=== PATIENT | male | born 1955 | race Two or more races ===

== ENCOUNTER 2017-02-07 10:10 | Emergency (ER) | payer OTHER ==
--- NOTE | 2017-02-07 10:18 | EDPHY ---
H & P Time Seen by Provider: 02/07/17 10:18 HPI/ROS: CHIEF COMPLAINT: Tachycardia HISTORY OF PRESENT ILLNESS: The patient presents to the ED after he was noted on a routine physical examination to have tachycardia. The patient has no complaints of chest pain. He does have occasional dyspnea on exertion. The patient denies any fever, cough or congestion. He denies asymmetric calf pain or swelling. REVIEW OF SYSTEMS: A comprehensive 10 point review of systems is otherwise negative aside from elements mentioned in the history of present illness. Source: Patient Exam Limitations: No limitations - Family History Significant Family History: No pertinent family hx - Physical Exam Exam: General Appearance: Alert, no distress Eyes: Pupils equal and round no pallor or injection ENT, Mouth: Mucous membranes moist Respiratory: There are no retractions, lungs are clear to auscultation Cardiovascular: Irregular tachycardia consistent with atrial fibrillation Gastrointestinal: Abdomen is soft and nontender, no masses, bowel sounds normal Neurological: A&O, normal motor function, normal sensory exam, normal cranial nerves Skin: Warm and dry, no rashes Musculoskeletal: Neck is supple nontender Extremities: symmetrical, full range of motion Constitutional: Initial Vital Signs Temperature (C) 36.7 C 02/07/17 10:17 Heart Rate 157 H 02/07/17 10:17 Respiratory Rate 16 02/07/17 10:17 Blood Pressure 144/110 H 02/07/17 10:17 O2 Sat (%) 95 02/07/17 10:17 O2 Delivery Mode Room Air Allergies/Adverse Reactions: No Known Allergies Allergy (Unverified 02/07/17 10:17) Home Medications: Medication Instructions Recorded Multivitamin 02/07/17 Medical Decision Making - Diagnostics EKG Interpretation: EKG: Complete interpretation has been separately recorded in the [email or web address] archive. Summary impression: Atrial fibrillation ventricular rate 153 Imaging Results: Imaging Impressions Chest X-Ray 02/07/17 10:33 Impression: Normal chest x-ray. ED Course/Re-evaluation: The patient presents to the ED with newly diagnosed atrial fibrillation. The patient has no complaints of chest pain or shortness of breath. He has no clinical or radiographic evidence of heart failure. The patient is noted to have a normal troponin and TSH. He has no evidence of anemia or metabolic abnormality. The patient did have a single recorded episode of hypertension at triage. He was normotensive at the time of this dictation. The patient's CHADs VASC score is 1 secondary to his hypertension. I did zulmabsanitha Carpio from Cardiology. The patient will be started on an 81 mg aspirin and diltiazem 120 mg XR. The patient will contact Dr. Carpio for a follow-up visit. Patient understands to return to the ED for any chest pain, shortness of breath or syncope. Differential Diagnosis: Differential diagnosis considered includes atrial fibrillation, SVT, pulmonary embolism, hyperthyroidism, anemia, congestive heart failure - Data Points Laboratory Results: Laboratory Results 02/07/17 10:20 02/07/17 10:20 02/07/17 02/07/17 02/07/17 10:20 10:20 10:20 WBC 7.97 10^3/uL 10^3/uL (3.80-9.50) RBC 4.84 10^6/uL 10^6/uL (4.40-6.38) Hgb 14.5 g/dL g/dL (13.7-17.5) Hct 43.6 % % (40.0-51.0) MCV 90.1 fL fL (81.5-99.8) MCH 30.0 pg pg (27.9-34.1) MCHC 33.3 g/dL g/dL (32.4-36.7) RDW 13.3 % % (11.5-15.2) Plt Count 231 10^3/uL 10^3/uL (150-400) MPV 8.8 fL fL (8.7-11.7) Neut % (Auto) 77.4 % H % (39.3-74.2) Lymph % (Auto) 13.2 % L % (15.0-45.0) Gem % (Auto) 7.5 % % (4.5-13.0) Eos % (Auto) 1.0 % % (0.6-7.6) Baso % (Auto) 0.6 % % (0.3-1.7) Nucleat RBC Rel Count 0.0 % % (0.0-0.2) Absolute Neuts (auto) 6.17 10^3/uL 10^3/uL (1.70-6.50) Absolute Lymphs (auto) 1.05 10^3/uL 10^3/uL (1.00-3.00) Absolute Monos (auto) 0.60 10^3/uL 10^3/uL (0.30-0.80) Absolute Eos (auto) 0.08 10^3/uL 10^3/uL (0.03-0.40) Absolute Basos (auto) 0.05 10^3/uL 10^3/uL (0.02-0.10) Absolute Nucleated RBC 0.00 10^3/uL 10^3/uL (0-0.01) Immature Gran % 0.3 % % (0.0-1.1) Immature Gran # 0.02 10^3/uL 10^3/uL (0.00-0.10) D-Dimer 0.47 ug/mLFEU ug/mLFEU (0.00-0.50) Sodium 142 mEq/L mEq/L (134-144) Potassium 4.4 mEq/L mEq/L (3.5-5.2) Chloride 107 mEq/L mEq/L (97-110) Carbon Dioxide 22 mEq/l mEq/l (22-31) Anion Gap 13 mEq/L mEq/L (8-16) BUN 25 mg/dL H mg/dL (7-23) Creatinine 1.2 mg/dL mg/dL (0.7-1.3) Estimated GFR > 60 Glucose 107 mg/dL H mg/dL (70-100) Calcium 9.1 mg/dL mg/dL (8.5-10.4) Troponin I < 0.012 ng/mL ng/mL (0.000-0.034) TSH 4.510 uIU/mL uIU/mL (0.465-4.680) Departure - Departure Disposition: Home, Routine, Self-Care Clinical Impression: Atrial fibrillation Condition: Good Instructions: A-fib (Atrial Fibrillation) (ED) Additional Instructions: 1. Please begin taking diltiazem as prescribed. 2. Return to the ED for chest pain, difficulty breathing or other concerns. 3. Please begin taking one 81 mg baby aspirin daily. 4. Please contact Dr. Carpio from Cardiology at the [facility] to schedule a follow-up visit. Referrals: Shira Sampson FNP [Primary Care Provider] - As per Instructions Fede Carpio MD [Medical Doctor] - As per Instructions
--- NOTE | 2017-02-07 10:19 | CPEKG ---
Heart Rate: 153 RR Interval: 392 QRSD Interval: 88 QT Interval: 300 QTC Interval: 479 QRS [place]: 20 T Wave [place]: 72 EKG Severity - ABNORMAL ECG - EKG Impression: ATRIAL FIBRILLATION, V-RATE 101-192 Electronically Signed By: Dano Luevano 07-Feb-2017 10:50:32
[2017-02-07 10:20] VITALS: RESP 16; TEMP 98.1
[2017-02-07 10:39] LABS: PLATELET COUNT 231 10^3/uL (150-400)
[2017-02-07 12:32] VITALS: BP 129/87; PULSE 122; O2SAT 97
== END 2017-02-07 12:35 | disposition home or self-care (01) ==
DX: I48.91 Unspecified atrial fibrillation (principal)

== ENCOUNTER 2017-03-06 09:23 | Day surgery (SDC) | payer OTHER ==
[2017-03-06] MEDS ORDERED: NS 500 ML IV ONE (09:27)
[2017-03-06] MEDS ORDERED: fentaNYL 100 MCG/2 ML INJ IVP ONE (09:27)
[2017-03-06] MEDS ORDERED: MIDAZOLAM 2 MG/2 ML VIAL IVP ONE (09:27)
[2017-03-06] MEDS ORDERED: BENZOCAINE UNIT DOSE SPRAY HURRICAINE MM ONE (09:27)
[2017-03-06] MEDS ORDERED: ATROPINE SULFATE 1 MG/10 ML SYR IVP ONE (09:27)
--- NOTE | 2017-03-06 09:54 | CPEKG ---
Heart Rate: 123 RR Interval: 488 QRSD Interval: 90 QT Interval: 332 QTC Interval: 475 QRS [place]: -21 T Wave [place]: 47 EKG Severity - ABNORMAL ECG - EKG Impression: ATRIAL FIBRILLATION, V-RATE 87-153 EKG Impression: BORDERLINE LEFT AXIS DEVIATION EKG Impression: ATRIAL FIBRILLATION WAS NOTED 07-FEB-17 WELL Electronically Signed By: Matty Ward 10-Mar-2017 10:46:33
[2017-03-06] MEDS ORDERED: APIXABAN 5 MG TAB PO ONE (10:00)
[2017-03-06 10:19] LABS: INR 1.07 (0.83-1.16); PROTIME(PATIENT) 14.1 SEC (12.0-15.0)
[2017-03-06] MEDS ORDERED: PROPOFOL 200 MG/20 ML VIAL ONE ×3 (10:34→13:45)
[2017-03-06] MEDS ORDERED: SUCCINYLCHOLINE CHLORIDE 200 MG/10 ML SYR IVP ONE (10:34)
[2017-03-06] MEDS ORDERED: LIDOCAINE 2% 100 MG/5 ML SYR ONE (10:34)
--- NOTE | 2017-03-06 10:43 | PDANEPAE ---
ANE History of Present Illness a-fib s/f NERY/CV ANE Past Medical History - Cardiovascular History Hx Arrhythmias: Yes - Pulmonary History Hx Oxygen in Use at Home: No Hx Sleep Apnea: No - Endocrine History Hx Diabetes: No ANE Review of Systems Review of Systems: - Exercise capacity Exercise capacity: >=4 METS ANE Patient History - Allergies Allergies/Adverse Reactions: No Known Allergies Allergy (Unverified 02/07/17 10:17) - Home Medications Home medications: home medication list seen and reviewed (diltiazem) Home Medications: Multivitamin 02/07/17 [Last Taken 03/05/17] - NPO status NPO Status: no food or drink >8 hours - Anes Hx Anes Hx: no prior problems - Smoking Hx Smoking Status: Never smoked - Alcohol Use Alcohol Use: Rarely - Family Anes Hx Family Anes Hx: none ANE Labs/Vital Signs - Labs Result Diagrams: 03/06/17 10:00 - Vital Signs Height: 182.88 cm Weight: 83.461 kg ANE Physical Exam - Airway Mallampati Score: Class 1 Mouth exam: normal dental/mouth exam - Pulmonary Pulmonary: no respiratory distress - Cardiovascular Cardiovascular: regular rate and rhythym - ASA Status ASA Status: II ANE Anesthesia Plan Anesthesia Plan: GA with mask
--- NOTE | 2017-03-06 11:02 | POSTANESTH ---
Post Anesthetic Evaluation Cardiovascular Status: Normal, Stable Respiratory Status: Normal, Stable Level of Consciousness/Mental Status: Can Participate in Eval Pain Control: Adequate, Prn Tx Ordered Nausea/Vomiting Control: Adequate, Prn Tx Ordered Complications Possibly Related to Anesthesia: None Noted (After the consent and drugs drawn up case was delay by lapidary apprentice because of inadequate Eliquis circulation time. 20 cc's of Propofol and 100 mg of Lidocaine wasted. Pt. recieved no medication from me.)
[2017-03-06] MEDS ORDERED: PROPOFOL/EMULSION 500 MG/50 ML BOTTLE IV ONE (13:46)
--- NOTE | 2017-03-06 14:08 | PDANEPAE ---
ANE Past Medical History - Cardiovascular History Hx Arrhythmias: Yes - Pulmonary History Hx Oxygen in Use at Home: No Hx Sleep Apnea: No - Endocrine History Hx Diabetes: No ANE Review of Systems Review of Systems: ANE Patient History - Allergies Allergies/Adverse Reactions: No Known Allergies Allergy (Unverified 02/07/17 10:17) - Home Medications Home Medications: Multivitamin 02/07/17 [Last Taken 03/05/17] - Smoking Hx Smoking Status: Never smoked - Alcohol Use Alcohol Use: Rarely ANE Labs/Vital Signs - Labs Result Diagrams: 03/06/17 10:00 - Vital Signs Height: 182.88 cm Weight: 83.461 kg ANE Physical Exam - ASA Status ASA Status: III ANE Anesthesia Plan Total IV Anesthesia: Yes
--- NOTE | 2017-03-06 14:08 | POSTANESTH ---
Post Anesthetic Evaluation Cardiovascular Status: Similar to Pre-Op Cond Respiratory Status: Normal, Stable Level of Consciousness/Mental Status: Can Participate in Eval Pain Control: Adequate, Prn Tx Ordered Nausea/Vomiting Control: Adequate, Prn Tx Ordered
--- NOTE | 2017-03-06 17:43 | GPN ---
[f rep st] PROCEDURE NOTE DATE OF PROCEDURE: 03/06/2017 PROCEDURE PERFORMED: Transesophageal echocardiogram-guided cardioversion. INDICATION FOR PROCEDURE: Symptomatic atrial fibrillation. DESCRIPTION OF PROCEDURE: In summary, the patient is a pleasant 61-year-old gentleman who initially was found to be in atrial fibrillation during routine office visit with his primary care physician. I had seen him in consultation earlier this month and had recommended NERY-guided cardioversion. He h ad at that time wished to consider with his . He had ultimately called our office back and elect ed to undergo NERY cardioversion. However, he did not initiate oral anticoagulation as we discussed i n the office visit. He was given Eliquis 5 mg p.o. x1 this morning. Over 2 hours after initial Eliq uis, he underwent NERY-guided cardioversion. Prior to procedure, he underwent informed consent for kiana th NERY and cardioversion. With the assistance of Anesthesia, NERY probe was passed without incident. Probe was used to take images of all cardiac structures. Please see complete echo report for detail s. Patient had no evidence of left atrial or left atrial appendage thrombus. Left ventricular funct ion appeared within normal limits. NERY probe was removed without incident. Attention was turned to cardioversion. The patient underwent an initial shock with synchronized biph asic 150 joules. He remained in atrial fibrillation. He underwent 2 further attempts at cardioversi on with 200 joules of synchronized energy. He had a brief return to sinus rhythm after his third uzair ck, but atrial fibrillation persisted. No further attempts were made at cardioversion. Patient woke from anesthesia without difficulty. PLAN: 1. Patient will be given a prescription for Eliquis 5 mg p.o. b.i.d. 2. Patient will be initiated on amiodarone 400 mg p.o. daily x10 days and then 200 mg daily. He has been given prescriptions for both Eliquis and amiodarone. 3. Will discontinue diltiazem. 4. Follow up in the office in 2 weeks. If remains in atrial fibrillation at that time, will arrange for repeat cardioversion. /[id number]/MODL
[2017-03-06] MEDS ORDERED: APIXABAN 5 MG TAB PO SCH (21:00)
[2017-03-07] MEDS ORDERED: AMIODARONE HCL 200 MG TAB PO SCH (09:00)
== END 2017-03-06 15:50 | disposition home or self-care (01) ==
LOC: FCATH 09:23
PROVIDERS: ATTEND Internal Medicine Cardiovascular Disease
DX: I48.1 Persistent atrial fibrillation (principal)
CPT/HCPCS: J0330; J0461; J2001; J2704